=== PATIENT | male | born 1960 | race African-American/Black ===

== ENCOUNTER 2016-07-30 09:50 | Day surgery (SDC) | payer OTHER ==
[~2016-07-30] VITALS: Ht 175.3 cm; Wt 100.0 kg
[~2016-07-30 09:50] MED LIST: AMLODIPINE BESYL5 MG PO; BENADRYL50 MG PO; CRESTOR40 MG PO; CYCLOBENZAPRINE10 MG PO; DIVALPROEX SOD500 M1 PO; FLEXERIL5 MG PO; GABAPENTIN300 MG PO; MAPAP500 M1 PO; METHOCARBAMOL750 MG PO; NAPROXEN500 MG PO; NIZORAL 2% CREA15 GM TP; NORVASC5 MG PO; PEPCID20 MG PO; PREDNISONE50 MG PO; PRILOSEC20 MG PO; RANITIDINE HCL150 MG PO; SEROQUEL100 MG PO; ULTRAM50 MG PO; VITAMIN D31000 UNIT PO; WELLBUTRIN XL150 MG PO
[2016-07-30 10:38] LABS: HEMATOCRIT 44.3 % (38.0-50.0); MCH 28.4 PG (29.0-34.0); MCHC 33.9 G/DL (30.0-36.0); MCV 83.7 FL (86-99); MEAN PLAT.VOLUME 11.5 uM^3 (9.0-12.4); PLATELET COUNT 181 K/uL (156-360); RBC DIS.WIDTH-CV 16.4 % (11.8-14.6); RBC DIS.WIDTH-SD 49.7 % (39-53); RED BLOOD COUNT 5.29 M/uL (4.00-5.50)
[2016-07-30 10:41] VITALS: BP 115/72
[2016-07-30 11:12] LABS: ALKALINE PHOSPHATASE 76 IU/L (3-129); ANION GAP 6 MEQ/L (2-14); CHLORIDE 105 MEQ/L (99-109); GFR ESTIMATE (CALCULATED) > 59 mL/min/; GLUCOSE 100 mg/dL (70-99); POTASSIUM 3.4 MEQ/L (3.7-5.4); SAMPLE HEMOLYSIS CHECK 0; SAMPLE ICTERIC CHECK 0; SAMPLE LIPEMIA CHECK 0; SODIUM 139 MEQ/L (136-147); TOTAL BILIRUBIN 0.6 MG/DL (0.0-1.0); UREA NITROGEN (BUN) 10 mg/dL (9-23)
[2016-07-30 17:45] VITALS: BP 115/60
== END 2016-07-30 18:12 | disposition home or self-care (01) ==
LOC: SDC 09:50
PROVIDERS: Ophthalmology
DX: H43.391 Other vitreous opacities, right eye (principal); H33.41 Traction detachment of retina, right eye; Z98.41 Cataract extraction status, right eye; I10 Essential (primary) hypertension; F17.200 Nicotine dependence, unspecified, uncomplicated; K21.9 Gastro-esophageal reflux disease without esophagitis
CPT/HCPCS: 80053; 85027; J0690; J1100; J1120; J1885; J2250; J2405; J2795; J3010; J3300

== ENCOUNTER 2017-03-19 09:01 | Emergency (ER) | payer OTHER ==
[~2017-03-19] VITALS: Ht 175.3 cm; Wt 106.4 kg
[2017-03-19 09:26] LABS: HEMATOCRIT 49.3 % (38.0-50.0); MCH 27.7 PG (29.0-34.0); MCHC 32.7 G/DL (30.0-36.0); MCV 84.7 FL (86-99); RBC DIS.WIDTH-CV 15.8 % (11.8-14.6); RBC DIS.WIDTH-SD 49.1 % (39-53); RED BLOOD COUNT 5.82 M/uL (4.00-5.50); WHITE BLOOD COUNT 14.3 K/uL (4.1-10.2)
[2017-03-19 09:34] LABS: MEAN PLAT.VOLUME 10.8 uM^3 (9.0-12.4); PLATELET COUNT 213 K/uL (156-360)
[2017-03-19 09:35] LABS: PROTHROMBIN TIME 10.9 SEC (10.2-12.9)
[2017-03-19 09:37] LABS: CHLORIDE 110 mEq/L (99-109); POTASSIUM 3.6 mEq/L (3.7-5.4); SODIUM 144 mEq/L (136-147)
[2017-03-19 09:38] LABS: MAGNESIUM 1.8 mg/dL (1.3-2.7); PTT 29.1 SEC (25-37)
[2017-03-19 09:40] LABS: GLUCOSE 131 mg/dL (70-99)
[2017-03-19 09:41] LABS: ANION GAP 15 MEQ/L (2-14)
[2017-03-19 09:42] LABS: TOTAL BILIRUBIN 0.9 mg/dL (0.0-1.0)
[2017-03-19 09:43] LABS: SERUM ETHYL ALCOHOL < 10 mg/dL
[2017-03-19 09:44] LABS: ALKALINE PHOSPHATASE 96 IU/L (3-129); GFR ESTIMATE (CALCULATED) > 59 mL/min/
[2017-03-19 09:45] LABS: UREA NITROGEN (BUN) 7 mg/dL (9-23)
[2017-03-19 09:47] LABS: CREATINE KINASE 217 IU/L (1-294); LIPASE 36 U/L (1.0-51.0); TOTAL CK 217 IU/L (1-294); TROP-I INTERPRETATION NEGATIVE; TROPONIN-I < 0.01 ng/mL (0.0-0.30)
[2017-03-19] MEDS ORDERED: LIPITOR80 MG PO (09:49)
[2017-03-19 09:55] LABS: CK-MB 1.9 ng/mL (0.0-4.9)
[2017-03-19 12:07] LABS: ADD MIUA? YES; BILIRUBIN NEGATIVE; BLOOD NEGATIVE; COLOR YELLOW ((YELLOW)); GLUCOSE (STRIP) NEGATIVE; KETONES NEGATIVE; LEUKOCYTES NEGATIVE; NITRITE NEGATIVE; PROTEIN (STRIP) 100; SPECIFIC GRAVITY 1.023 (1.000-1.030)
[2017-03-19 12:42] LABS: BACTERIA RARE /HPF; CALCIUM OXALATE CRYSTALS 1+ /HPF; EPITHELIAL CELLS RARE /HPF; HYALINE CASTS 0-5 /LPF; MUCUS 2+ /LPF; RED BLOOD CELLS 0-5 /HPF (0-5); UCUL ADDED? NO; WHITE BLOOD CELLS 0-5 /HPF (0-5)
[2017-03-19 13:22] LABS: TROP-I INTERPRETATION NEGATIVE; TROPONIN-I < 0.01 ng/mL (0.0-0.30)
[2017-03-19] MEDS ORDERED: ZOFRAN ODT4 MG PO (14:22)
[2017-03-19 14:38] VITALS: BP 111/50
== END 2017-03-19 14:40 | disposition home or self-care (01) ==
LOC: EME 09:01
PROVIDERS: Emergency Medicine
DX: R11.2 Nausea with vomiting, unspecified (principal); R10.9 Unspecified abdominal pain; R19.7 Diarrhea, unspecified; R00.1 Bradycardia, unspecified; K21.9 Gastro-esophageal reflux disease without esophagitis; F17.200 Nicotine dependence, unspecified, uncomplicated
CPT/HCPCS: 74020; 74176; 80053; 81003; 82550; 82553; 83605; 83690; 83735; 84484; 85027; 85610; 85730; 93005; 99281; 99285; G0480; J1630; J2270; J2405; J2765; J7030; S0028